=== PATIENT | male | born 1965 | race Caucasian/White ===

== ENCOUNTER → 2021-09-22 | Outpatient (CLI) | payer OTHER ==
[~2021-09-22] MED LIST: GADOTERATE 7.5 MMOL/15ML VIAL. INT ART ONE; IOHEXOL 300 MG/ML 50 ML VIAL. INT ART ONE; LIDOCAINE 1% Multi-Dose 20 ML VIAL. ID ONE
--- NOTE | 2021-09-22 13:50 | KCIC ---
EXAM: Fluoroscopically guided left glenohumeral joint injection for MRI arthrogram INDICATION: Left shoulder pain COMPARISON: Left shoulder radiograph 08/27/2019 TECHNIQUE/FINDINGS: The purpose of the procedure and risks including infection, bleeding, contrast reaction, and pain wer e discussed with the patient. Informed consent was obtained. A timeout was performed. After obtaining consent, the patient was placed supine on the fluoroscopy table with the left shoulde r externally rotated. The skin overlying the left shoulder was marked, sterilized and draped. Super ficial and deep soft tissues were anesthetized with 1% lidocaine. Utilizing fluoroscopic guidance, a 25-gauge 1.5 inch needle was advanced into the joint. Intraarticular position was confirmed with inj ection of a small amount of iodinated contrast. Subsequently, 13 mL of a solution containing the fol lowing items was instilled into the joint: 10 mL of 1% lidocaine, 5 mL of sterile saline, 5 mL of no n-ionic iodinated contrast, and 0.1 mL of gadolinium. At the end of the procedure, the needle was removed. The overlying skin was cleansed and covered wit h a bandaid. The patient tolerated the procedure well and was free of immediate complications. The p atient was transferred for the MR portion of the exam in stable condition. Total fluoroscopic time: 20 sec. 2 fluoroscopic images saved. IMPRESSION: Technically successful left glenohumeral joint injection for the purposes of MR arthrogr am. Electronically signed by: Chani Ramirez MD (09/22/2021 1:47 PM) [id number]
--- NOTE | 2021-09-22 15:22 | KCIC ---
EXAM: MRI LEFT SHOULDER WITH CONTRAST INDICATION: Internal derangement left shoulder, left shoulder pain. Chronic left shoulder pain and de creased range of motion, lifting injury. COMPARISON: None TECHNIQUE: Multiplanar, multisequence imaging of the left shoulder after intra-articular injection of contrast, performed separately. FINDINGS: ROTATOR CUFF: The supraspinatus, infraspinatus, subscapularis, and teres minor tendons are intact. No rotator cuff muscle atrophy or edema. LABRUM: There is a globular appearance of the anterior-inferior labrum and anterior inferior glenohum eral ligament, which are increased in signal. This may be sequela of old tear. No contrast extending into the labrum. BICEPS TENDON: The biceps tendon is intact and located. ACROMIOCLAVICULAR JOINT: Mild acromioclavicular degenerative joint disease. Type II acromion. GLENOHUMERAL JOINT: Articular cartilage is intact. No acute fracture or marrow signal abnormality. Al ignment is normal. OTHER: There is contrast in the joint. Trace fluid but no contrast in the subacromial-subdeltoid burs a. IMPRESSION: 1. No rotator cuff tear. 2. Possible old tear of the anterior-inferior labrum and anterior-inferior glenohumeral ligament whic h are thickened and increased in signal. 3. Mild acromioclavicular degenerative joint disease. Electronically signed by: Chani Ramirez MD (09/22/2021 3:19 PM) [id number]
== END | disposition home or self-care (01) ==
LOC: KCIC 09:33
PROVIDERS: ATTEND Physician Assistant
DX: M25.512 Pain in left shoulder (principal); M24.812 Other specific joint derangements of left shoulder, not elsewhere classified; M19.012 Primary osteoarthritis, left shoulder; Z79.899 Other long term (current) drug therapy
CPT/HCPCS: 23350; 73222; 77002; A9575; J3490; Q9967